=== PATIENT | male | born 1965 | race Caucasian/White ===

== ENCOUNTER 2016-05-29 05:26 | Emergency (ER) | payer OTHER ==
[~2016-05-29] VITALS: Ht 177.8 cm; Wt 90.9 kg
[2016-05-29] MEDS ORDERED: SODIUM CHLORIDE 0.9% 1,000 ML IV ONE (06:41)
[2016-05-29] MEDS ORDERED: ONDANSETRON HCL 4MG/2ML VIAL IV STA (06:41)
[2016-05-29] MEDS ORDERED: KETOROLAC 30MG/ML VIAL IV STA (06:41)
[2016-05-29 07:07] LABS: CLARITY URINE CLEAR (CLEAR); COLOR URINE YELLOW (YELLOW); GLUCOSE URINE NEGATIVE (NEGATIVE); KETONES URINE NEGATIVE (NEGATIVE); LEUKOCYTE ESTERASE URINE NEGATIVE (NEGATIVE); NITRITE URINE NEGATIVE (NEGATIVE); OCCULT BLOOD URINE NEGATIVE (NEGATIVE); PROTEIN URINE NEGATIVE (NEGATIVE); SPECIFIC GRAVITY URINE 1.013 (1.005-1.030); UROBILINOGEN URINE 0.2 E.U./dL (0.2-1.0)
[2016-05-29 07:12] LABS: PROTHROMBIN TIME 10.2 sec
[2016-05-29 07:15] LABS: ALBUMIN 4.1 g/dL (3.4-5.0); ANION GAP 12; CALCIUM 8.9 mg/dL (8.5-10.1); CARBON DIOXIDE 25 mEq/L (21-32); CHLORIDE 107 mEq/L (98-107); INDEX HEMOLYSI 1 (1-3); INDEX ICTERIC 1 (1-4); INDEX LIPEMIC 1 (1-3); UREA NITROGEN BLOOD 12 mg/dL (7-21)
[2016-05-29 07:19] LABS: ALANINE AMINOTRANSFERASE 30 IU/L (13-61); BASOPHILS % 0.5 % (0.0-2.0); EOSINOPHILS % 2.1 % (0.0-5.0); HEMATOCRIT. 40.5 % (42.0-52.0); HEMOGLOBIN. 14.2 g/dL (14.0-18.0); LIPASE 151 IU/L (73-393); LYMPHOCYTES % 20.9 % (20.0-50.0); MEAN CORPUSCULAR HEMOGLOBIN 31.2 pg (28.0-32.0); MEAN CORPUSCULAR HGB CONC 35.2 g/dL (31.0-37.0); MEAN CORPUSCULAR VOLUME 88.8 fL (80.0-94.0); MONOCYTES % 7.3 % (2.0-8.0); NEUTROPHILS % 69.2 % (40.0-76.0); PLATELET 193 x1000/uL (130-400); RED BLOOD CELL COUNT 4.56 mill/uL (4.7-6.1); RED CELL DISTRIBUTION WIDTH 12.9 % (11.6-14.6); WHITE BLOOD COUNT 7.1 x1000/uL (4.5-11.0); eGFR > 60 mL/min (>60)
[2016-05-29 07:46] LABS: *AMPHETAMINES SCREEN URINE NEGATIVE (NEGATIVE); *BARBITURATES SCREEN URINE NEGATIVE (NEGATIVE); *BENZODIAZEPINES SCREEN URINE NEGATIVE (NEGATIVE); *COCAINE SCREEN URINE NEGATIVE (NEGATIVE); CANNABINOID URINE SCREEN NEGATIVE (NEGATIVE); ECSTASY MDMA SCREEN URINE NEGATIVE (NEGATIVE); METHADONE URINE SCREEN NEGATIVE (NEGATIVE); OPIATES URINE SCREEN NEGATIVE (NEGATIVE); PHENCYCLIDINE URINE SCREEN NEGATIVE (NEGATIVE)
[2016-05-29] MEDS ORDERED: HYDROCODONE/ACETAMINOPHEN 5/325MG TABLET PO ONE (10:00)
[2016-05-29 10:51] VITALS: BP 140/80
== END 2016-05-29 10:52 | disposition home or self-care (01) ==
LOC: ER 05:27
DX: R10.9 Unspecified abdominal pain (principal); M54.9 Dorsalgia, unspecified; Z88.6 Allergy status to analgesic agent; Z98.890 Other specified postprocedural states; Z87.440 Personal history of urinary (tract) infections
CPT/HCPCS: 36415; 74176; 76700; 80053; 80305; 81003; 83690; 85025; 85610; 96361; 96374; 96375; 99285; J1885; J2405; J7030

== ENCOUNTER 2023-09-29 13:16 | Emergency (ER) | payer BC, OTHER ==
[~2023-09-29] VITALS: Ht 175.3 cm; Wt 95.0 kg
[2023-09-29 14:10] VITALS: TEMP 98.4; O2SAT 96
[2023-09-29] MEDS ORDERED: KETOROLAC 15MG/ML VIAL IM ONE (14:45)
[2023-09-29] MEDS ORDERED: NAPR-1176 MT (15:50)
[2023-09-29] MEDS ORDERED: LIDO700A15 TP (15:50)
[2023-09-29] MEDS: KETOROLAC 15MG/ML VIAL IM NR (16:37)
[2023-09-29] MEDS: LIDOCAINE 5% PATCH TOP SCH (16:37)
[2023-09-29 16:56] VITALS: BP 154/87; PULSE 73; RESP 15; O2SAT 99
== END 2023-09-29 16:57 | disposition home or self-care (01) ==
LOC: ER 13:16
DX: G89.29 Other chronic pain (principal); M25.561 Pain in right knee; Z88.5 Allergy status to narcotic agent
CPT/HCPCS: 99283; 96372; J1885